=== PATIENT | female | born 1955 | race Caucasian/White ===

== ENCOUNTER 2020-01-07 06:27 | Emergency (ER) | payer OTHER, SELFPAY ==
[2020-01-07] VITALS (7 sets, daily range): BP systolic 122–169; BP diastolic 64–111; PULSE 60–75; RESP 16–19; TEMP 36.7; O2SAT 94–99
--- NOTE | ~2020-01-07 | CT_ITS ---
EXAMINATION: CT brain wo con INDICATION: Headache COMPARISON: None TECHNIQUE: Standard unenhanced head CT. The dose-length product (DLP) was 605.33 mGy-cm. The mA was a djusted according to patient size. Iterative reconstruction technique was employed. FINDINGS: There is no intracranial hemorrhage, acute infarction, or abnormal mass lesion. The ventric les are normal. There is no abnormal mass effect or midline shift. The arthur-white matter differentiat ion is normal. The basal cisterns are patent. The orbits are normal. Intracranial calcified cerebral atherosclerosis is noted. There is mild mucosal thickening of the paranasal sinuses. IMPRESSION: 1. No acute intracranial abnormality. Reviewed, dictated and finalized at location A. [employer]
--- NOTE | ~2020-01-07 | XR_ITS ---
EXAMINATION: XR hip RT min 3V w AP pelvis INDICATION: Right hip pain TECHNIQUE: AP view the pelvis and three views of the right hip are obtained. COMPARISON: None available FINDINGS: Bone alignment is normal. There is no fracture. Moderate volume of colonic stool is present . There is calcified atherosclerosis. IMPRESSION: 1. No acute osseous abnormality. Reviewed, dictated and finalized at location A. [employer]
--- NOTE | ~2020-01-07 | XR_ITS ---
EXAMINATION: XR chest 2V DATE: 01/07/2020 08:13 INDICATION: Pain after fall TECHNIQUE: AP and lateral views of the chest are obtained. COMPARISON: None available FINDINGS: The lungs are free of acute opacities. There is no pleural effusion or pneumothorax. The ca rdiomediastinal silhouette is normal. There is mild thoracic spondylosis. IMPRESSION: 1. No acute cardiopulmonary abnormality. Reviewed, dictated and finalized at location A. ERY RECHARGER
--- NOTE | 2020-01-07 07:12 | ED.FALL ---
HPI - Fall General Chief Complaint: Fall Stated Complaint: Fall Time Seen by Provider: 01/07/20 07:06 Source: patient and EMS Mode of arrival: EMS Limitations: no limitations History of Present Illness HPI Narrative: Patient is a 64-year-old female with a history of hypothyroidism who presents for evaluation of a fall and right-sided hip pain this morning. Patient states she was walking to work when all of a sudden she began to feel weak, losing her balance and falling onto her right side. She reports she was able to stand, but due to pain in her right leg her right leg continue to give out and she fell 3 additional times. Patient denies hitting her head or loss of consciousness. She denies vision changes, chest pain or shortness of breath prior to the fall. No palpitations. Patient states she currently feels well but feels slightly wobbly. Patient denies fever, chills, nausea, vomiting, abdominal pain. She denies current weakness or numbness in her upper or lower extremities. She states that she recently started Wellbutrin which is a new medication for her and is wondering if that could be contributing to her symptoms. No urinary symptoms. Related Data Allergies Allergy/AdvReac Type Severity Reaction Status Date / Time Sulfa (Sulfonamide Allergy Mild Unknown Verified 01/07/20 08:27 Antibiotics) erythromycin base Allergy Unknown Unknown Verified 01/07/20 08:27 VITAMIN E TOPICAL Allergy Intermediate Rash Uncoded 01/07/20 08:27 Review of Systems Review of Systems: Narrative: CONSTITUTIONAL: Denies fever, chills, or sweats. EYES: Denies visual changes, redness, or discharge. ENT: Denies rhinorrhea, congestion, sore throat, or otalgia. CARDIOVASCULAR: Denies chest pain, palpitations, or edema. RESPIRATORY: Denies cough or dyspnea. GASTROINTESTINAL: Denies abdominal pain, nausea, vomiting, or diarrhea. GENITOURINARY: Denies dysuria or hematuria. SKIN: Denies rash or itching. MUSCULOSKELETAL: Reports right-sided hip pain, right leg myalgia NEUROLOGIC: Denies headache, numbness, denies focal weakness PMFSH Past Medical History Medical History Diabetes Hyperlipidemia Hypothyroidism Social History Social History (Updated 01/07/20 @ 07:46 by Verónica Shetty MD) Smoking status: Current every day smoker Tobacco type: cigarettes Alcohol intake: never Substance use: never Living arrangements: alone Gender identity (if verbalized by the patient): Female Exam Narrative: Exam Narrative: GENERAL: Awake, alert, conversant HEAD: Normocephalic, atraumatic. EYES: PERRLA and EOMI. ENT: Nares clear, no rhinorrhea or epistaxis. Mucous membranes moist. NECK: Supple. CHEST: No respiratory distress, breathing even and non labored HEART: Regular rate, sinus rhythm ABDOMEN:Non distended, non tender EXTREMITIES: Normal range of motion. Mild tenderness to the lateral aspect of the right thigh. No ecchymoses. No gross deformity. No abrasion. SKIN: Warm, dry, no rash. NEURO:No focal deficits. Alert and oriented x3. Finger to nose intact bilaterally. EOMs intact without nystagmus. No facial droop/asymmetry noted bilaterally. Grimace intact. Intact sensation in face. Hearing intact bilaterally. Shoulder shrug intact. Strength 5/5 bilateral upper extremities. Strength 5/5 bilateral lower extremities. Reflexes 2+ patellar. Heel to [place] intact bilaterally. Ambulatory with a narrow base, steady gait, no ataxia. Course Vital Signs Vital signs: Vital Signs Temperature 36.7 C 01/07/20 06:40 Pulse Rate 72 01/07/20 06:40 Respiratory Rate 19 01/07/20 06:40 Blood Pressure 126/70 01/07/20 06:40 Pulse Oximetry 94 01/07/20 06:40 Temperature 36.7 C 01/07/20 06:40 Pulse Rate 69 01/07/20 10:23 Respiratory Rate 18 01/07/20 10:23 Blood Pressure 149/79 H 01/07/20 10:23 Pulse Oximetry 99 01/07/20 10:23 MDM - Fall MDM Narrative Medical decision
--- NOTE | 2020-01-07 07:40 | PC.NURSE ---
Pt 4 falls. Denies ay pain, denies hitting head, denies hitting head. Up and walked with EDP with steady gait. A&Ox4
--- NOTE | 2020-01-07 07:41 | ECG_ITS ---
Measurements Intervals [place] Rate: 57 P: 73 KS: 172 QRS: 85 QRSD: 89 T: 73 QT: 442 QTc: 432 Interpretive Statements SINUS BRADYCARDIA LEFT ATRIAL ENLARGEMENT BASELINE ARTIFACT- I, III, AVL BORDERLINE ECG Electronically Signed On 01-07-2020 8:47:16 APPRENTICE JOCKEY by Mirza Gee D.O.
--- NOTE | 2020-01-07 07:53 | PC.NURSE ---
pt to xray
[2020-01-07] MEDS: MECLIZINE HCL 25 MG TABLET PO (08:40)
[2020-01-07] MEDS: SODIUM CHLORIDE 0.9% IV 1,000 ML 999 ML IV CONT ×2 (08:41)
[2020-01-07 08:48] LABS: Basophils Absolute Auto 0.1 K/mm3 (0.0-0.1); Basophils Percent Auto 1.2 % (0.2-1.2); Eosinophils Percent Auto 0.4 % (0-4.4); Hemoglobin 17.1 g/dL (12.0-15.0); Immature Granulocyte Absolute 0.03 K/mm3 (0.00-0.031); Immature Granulocyte Percent A 0.4 % (0-0.5); Lymphocytes Absolute Auto 1.19 K/mm3 (0.9-3.2); Lymphocytes Percent Auto 16.1 % (18.3-44.2); Mean Corpuscular HGB Conc 33.5 g/dl (32-36); Mean Corpuscular Hemoglobin 33.8 pg (26-34); Mean Corpuscular Volume 100.8 fl (80-100); Mean Platelet Volume 8.7 fl (7.4-10.4); Monocytes Absolute Auto 0.4 K/mm3 (0.1-0.6); Monocytes Percent Auto 5.5 % (2.6-8.5); Neutrophils Absolute Auto 5.6 K/mm3 (1.3-6.7); Neutrophils Percent Auto 76.4 % (45.5-73.1); Platelet Count Result 170 k/mm3 (150-375); Red Blood Count 5.06 M/mm3 (4.2-5.4); Red Cell Distribution Width 12.6 % (11.5-14.5); White Blood Count 7.4 K/mm3 (4.5-10.0)
[2020-01-07 08:49] LABS: Add Urine Microscopic? NO; Appearance Urine Clear (Clear); Bilirubin Urine Negative (Negative); Blood Urine Negative (Negative); Color Urine Yellow (Yellow); Glucose Urine UA Negative (Negative); Ketones Urine Negative (Negative); Leukocyte Esterase Ur Negative LEU/UL (Negative); Nitrate Urine Negative (Negative); Protein Urine Negative (Negative); Specific Grav Ur 1.014 (1.001-1.035); Urobilinogen Urine Negative mg/dL (<2.0)
[2020-01-07 09:00] LABS: Alanine Aminotransferase 16 U/L (4-35); Albumin Level 4.6 g/dL (3.5-5.1); Alkaline Phosphatase 70 U/L (38-126); Anion Gap 7 mmol/L (8-16); Aspartate Amino Transferase 25 U/L (14-36); Bilirubin,Total 0.7 mg/dL (0.2-1.3); Blood Urea Nitrogen 16 mg/dL (7-17); Calcium 9.8 mg/dL (8.4-10.2); Carbon Dioxide 30 mmol/L (22-30); Chloride 99 mmol/L (98-107); Estimated CRCL calculation 60 ml/min; Estimated Glomerular Filt Rate > 60; Glucose 105 mg/dL (65-105); INR 0.9; Partial Thromboplastin Time 28.1 SECONDS (22.3-36.8); Potassium 3.8 mmol/L (3.4-5.0); Prothrombin Time 12.8 Seconds (11.1-14.7); Sodium 136 mmol/L (137-145)
--- NOTE | 2020-01-07 10:02 | PC.NURSE ---
F;uids still infusing due to IV not infusing well.
--- NOTE | 2020-01-07 10:51 | PC.NURSE ---
2 1000ml bags still each had 500 ml left. She received 500 of each (1000ml total). She did not wait to get the rest. I educated on her to increase fluid intake. She agreed.
== END 2020-01-07 10:58 | disposition home or self-care (01) ==
PROVIDERS: Emergency Provider Emergency Medicine; PCP Internal Medicine Gastroenterology
DX: S76.011A Strain of muscle, fascia and tendon of right hip, initial encounter (principal); S70.11XA Contusion of right thigh, initial encounter; E11.9 Type 2 diabetes mellitus without complications; E78.5 Hyperlipidemia, unspecified; E03.9 Hypothyroidism, unspecified; F17.210 Nicotine dependence, cigarettes, uncomplicated; R00.1 Bradycardia, unspecified; R94.31 Abnormal electrocardiogram [ECG] [EKG]; W18.39XA Other fall on same level, initial encounter
CPT/HCPCS: 36415; 70450; 71046; 73502; 80053; 81003; 85025; 85610; 85730; 93005; 96360; 96361; 99284; A9270; J7030